=== PATIENT | female | born 1930 ===

== ENCOUNTER 2020-02-26 13:26 | Emergency (ER) | payer OTHER ==
[~2020-02-26] VITALS: Ht 162.6 cm; Wt 36.0 kg
[2020-02-26] MEDS ORDERED: GLUCAGON 1 MG IVPush ONE (14:00)
[2020-02-26] MEDS ORDERED: SODIUM CHLORIDE FLUSH 10ML SYR IVF ONE (14:00)
[2020-02-26] MEDS ORDERED: MORPHINE SULFATE 4 MG/ML, 1ML IVPush PRN (14:00)
[2020-02-26] MEDS ORDERED: ONDANSETRON 2MG/ML, 2ML IVPush ONE (14:00)
[2020-02-26] MEDS ORDERED: ONDANSETRON 2MG/ML, 2ML ONE (14:05)
[2020-02-26] MEDS ORDERED: GLUCAGON 1 MG ONE (14:05)
[2020-02-26] MEDS ORDERED: MORPHINE SULFATE 4 MG/ML, 1ML ONE (14:06)
--- NOTE | 2020-02-26 14:14 | NUR ---
Pt medicated for pain per MAR.
[2020-02-26] MEDS ORDERED: PROPOFOL 10 MG/ML, 20ML ONE (14:24)
[2020-02-26] MEDS ORDERED: PROPOFOL 10 MG/ML, 100ML IV ONE (14:30)
[2020-02-26] MEDS ORDERED: GABA250S3 PO (14:32)
[2020-02-26] MEDS ORDERED: TURM1POW PO (14:32)
[2020-02-26] MEDS ORDERED: OLME20TA17 PO (14:32)
[2020-02-26] MEDS ORDERED: LEVO50TA5 PO (14:32)
[2020-02-26] MEDS ORDERED: ASPI-614 PO (14:32)
[2020-02-26] MEDS ORDERED: ATOR20TA37 PO (14:32)
[2020-02-26] MEDS ORDERED: CHOL10003 PO (14:32)
--- NOTE | 2020-02-26 14:39 | NUR ---
report taken from AC Cruz, this RN assuming care. endoscopy with foreign body removal complete. pt had a total of 75 mg propofol intraprocedure admin by ESTEFANÍA Escobar. outsole caser at bedside for 1:1 monitoring and post sedation assessment per policy. all monitors remain in place including etco2.
--- NOTE | 2020-02-26 15:27 | NUR ---
care resumed by this RN, 1:1 monitoring by metal burnisher discontinued as pt is at baseline sedation score. pt a&o, resps even and unlabored. speech clear. pt tolerating secretions. daughter at bedside. total 600mL NS infused intraprocedure. see procedural paperwork for VS and sedation scores per policy, all monitors in place during endoscopy including etco2.
--- NOTE | 2020-02-26 15:56 | NUR ---
MD Escobar notified pt hypotensive, 100/36, now 115/44, 600mL NS bolus infused by counselor dormitory intraprocedure. instructed RN to take orthostatic VS.
[2020-02-26 15:59] VITALS: BP 136/48
--- NOTE | 2020-02-26 16:25 | NUR ---
ORTHOSTATIC VS REVIEWED BY ESTEFANÍA ROWLAND, PT'S SPO2 89-91% ON ROOM AIR, MD NOTIFIED. PER PT'S DAUGHTER, PT HAS CHRONIC HYPOXIA. ESTEFANÍA ROWLAND OK'D DC. PT IS A&OX4, RESPS EVEN AND UNLABORED, AMBULATORY WITH ASSIST WHICH IS BASELINE. PT AND DAUGHTER GIVEN DC INSTRUCTIONS AND SCRIPT, EDUCATED REGARDING OMEPRAZOLE RX AND GI F/U, PT AND DAUGHTER VERBALIZE UNDERSTANDING. PT GIVEN WC ESCORT TO DC, DAUGHTER DRIVING PT HOME TO ASSISTED LIVING. PIV DC'D WITH TIP INTACT. PT TOLERATING SECRETIONS, NO N/V AT DC. NO COMPLAINT OF PAIN. NADN AT DC.
== END 2020-02-26 16:26 | disposition home or self-care (01) ==
LOC: ED 16:20
DX: T18.128A Food in esophagus causing other injury, initial encounter (principal); I10 Essential (primary) hypertension; E03.9 Hypothyroidism, unspecified; I73.9 Peripheral vascular disease, unspecified; X58.XXXA Exposure to other specified factors, initial encounter; Y93.9 Activity, unspecified; Y92.89 Other specified places as the place of occurrence of the external cause; Y99.8 Other external cause status
CPT/HCPCS: 43247; 96374; 96375; 99152; 99285; J1610; J2270; J2405; J2704